=== PATIENT | female | born 1995 | race Hispanic/Latino ===

== ENCOUNTER 2017-05-17 09:24 | Outpatient (CLI) | payer SELFPAY ==
--- NOTE | 2017-05-17 10:17 | RAD ---
LUMBAR SPINE 3 VIEWS: Date: 05/17/17 HISTORY: Lumbago with sciatica, right side. FINDINGS/IMPRESSION: No fracature, subluxation, or bony destruction is seen. POS: [id number]
== END 2017-05-17 09:25 | disposition home or self-care (01) ==
LOC: RAD 09:24
DX: M54.41 Lumbago with sciatica, right side (principal)
CPT/HCPCS: 72100